=== PATIENT | female | born 1965 | race Caucasian/White ===

== ENCOUNTER 2018-06-14 19:00 | Emergency (ER) | payer MEDICAID ==
[~2018-06-14] VITALS: Ht 152.4 cm; Wt 54.5 kg
[2018-06-14 19:18] LABS: GLUCOSE,POINT OF CARE 494 MG/DL (70-110)
[2018-06-14] MEDS ORDERED: ATOR40TA28 PO (19:23)
[2018-06-14] MEDS ORDERED: ASPI81 PO (19:23)
[2018-06-14] MEDS ORDERED: AMLO2.5T3 PO (19:23)
[2018-06-14] MEDS ORDERED: IBUP-2071 PO (19:23)
[2018-06-14] MEDS ORDERED: INSU100I8 SQ (19:23)
[2018-06-14] MEDS ORDERED: CETI-290 PO (19:23)
[2018-06-14] MEDS ORDERED: FERR-89 PO (19:23)
[2018-06-14] MEDS ORDERED: INSLAN SQ (19:23)
[2018-06-14 21:05] LABS: EOSINOPHILS % (AUTO) 0.8 % (1.0-6.0); HEMATOCRIT 34.8 % (36-46); HEMOGLOBIN 11.6 g/dL (12.0-16.0); LYMPHOCYTES # (AUTO) 1.6 K/uL (1.0-4.8); LYMPHOCYTES % (AUTO) 13.8 % (22.0-44.0); MEAN CORPUSCULAR HEMOGLOBIN 29.4 pg (26.0-34.0); MEAN CORPUSCULAR HGB CONC 33.2 G/dL (31.0-37.0); MEAN CORPUSCULAR VOLUME 89 fL (80-100); MONOCYTES # (AUTO) 0.5 K/uL (0.1-1.0); MONOCYTES % (AUTO) 4.2 % (2.0-9.0); NEUTROPHILS % (AUTO) 79.2 % (40.0-70.0); PLATELET COUNT (AUTO) 192 K/uL (150-450); RED BLOOD CELL COUNT(AUTO) 3.93 MIL/uL (4.00-5.20); RED CELL DISTRIBUTION WIDTH 12.9 % (11.5-14.5)
[2018-06-14] MEDS ORDERED: SODIUM CHLORIDE 0.9% 1,000 ML IV ONE (21:15)
[2018-06-14] MEDS ORDERED: ONDANSETRON HCL 4 MG/2 ML VIAL IVP ONE (21:15)
[2018-06-14 21:24] LABS: ALBUMIN 4.6 g/dL (3.4-5.0); BILIRUBIN,TOTAL 0.4 mg/dL (0.1-1.0); CALCIUM, TOTAL 9.5 mg/dL (8.8-10.5); CREATININE 1.08 mg/dL (0.60-1.30); POTASSIUM 4.7 mmol/L (3.5-5.1); TOTAL PROTEIN, SERUM 8.4 g/dL (6.4-8.2)
[2018-06-14 22:13] LABS: GLUCOSE,POINT OF CARE 371 MG/DL (70-110)
[2018-06-14] MEDS ORDERED: INSULIN REGULAR, HUMAN 100 UNITS/ML IVP ONE (22:30)
[2018-06-14 22:55] LABS: PLATELET MORPHOLOGY COMMENT GIANT PLTS PRESENT
[2018-06-14 22:58] LABS: GLUCOSE,POINT OF CARE 361 MG/DL (70-110)
[2018-06-14 23:02] VITALS: BP 131/71
== END 2018-06-14 23:07 | disposition home or self-care (01) ==
LOC: EMS 19:03
DX: R11.2 Nausea with vomiting, unspecified (principal); R19.7 Diarrhea, unspecified; E11.9 Type 2 diabetes mellitus without complications; E78.00 Pure hypercholesterolemia, unspecified; I10 Essential (primary) hypertension; F17.210 Nicotine dependence, cigarettes, uncomplicated; Z88.5 Allergy status to narcotic agent; Z79.82 Long term (current) use of aspirin; Z79.4 Long term (current) use of insulin; Z90.49 Acquired absence of other specified parts of digestive tract
CPT/HCPCS: 36415; 80053; 82948; 82962; 83690; 85025; 96361; 96374; 96375; 99283; J1815; J2405; J7030